=== PATIENT | male | born 1950 | race Caucasian/White ===

== ENCOUNTER 2017-06-25 13:06 | Outpatient (RCR) | payer MEDICARE, MEDICAID ==
[~2017-06-25 13:06] MED LIST: ACHD5005 PO; ATEN50TA PO; CEPH500C PO; CLIN-62 PO; CLIN300C3 PO; HYDR-757 PO; LACT1CAP62 PO; LOVA40TA2 PO; METH4TAB PO; NAPR-243 PO; TRM50T PO
== END 2017-06-25 15:46 | disposition home or self-care (01) ==
PROVIDERS: ATTEND Nurse Practitioner Community Health
DX: M54.42 Lumbago with sciatica, left side (principal)

== ENCOUNTER → 2018-05-30 | Outpatient (CLI) | payer MEDICARE ==
--- NOTE | 2018-05-30 17:05 | Diagnostic Imaging Report ---
CT CHEST SCREENING WO TECHNIQUE: Low-dose unenhanced CT of the chest was performed according to the screening protocol. Coronal MIP and sagittal MPR reformats are created. INDICATION: 67-year-old male with 10-wjfd-ywaa history of smoking. COMPARISON: None available. FINDINGS: Pulmonary findings: No endoluminal nodule within the trachea. Within the left lower lobe, there is an area of potential scarring with multiple cystic airspace disease and areas of cystic bronchiectasis within the anterolateral basal segment of the left lower lobe. No separate pulmonary nodule or mass elsewhere within the lungs. Extrapulmonary findings: No pleural effusion. No axillary lymphadenopathy. No mediastinal, discrete hilar or juxtaphrenic lymphadenopathy. The heart is normal in size without pericardial effusion. Normal caliber thoracic aorta. Scattered coronary artery calcifications. IMPRESSION: 1. Left lower lobe area of probable postinflammatory scarring/fibrosis. Recommend followup low dose CT chest in 3 months to ensure stability and exclude atypical cystic neoplasm. Lung-RADS category: 4A - Suspicious Modifier: None. Dictated by: Dictated on workstation # [id number]
== END ==
LOC: RAD 15:07
PROVIDERS: ATTEND Nurse Practitioner Community Health
DX: Z12.2 Encounter for screening for malignant neoplasm of respiratory organs (principal); F17.210 Nicotine dependence, cigarettes, uncomplicated

== ENCOUNTER → 2020-07-31 | Outpatient (CLI) | payer MEDICARE ==
--- NOTE | 2020-07-31 16:15 | Diagnostic Imaging Report ---
EXAMINATION: CT chest without contrast (lung screening). TECHNIQUE: Multiple contiguous axial images were obtained through the chest without the use of intravenous contrast according to lung cancer screening protocol. All CT scans use one or more of the following dose optimizing techniques: automated exposure control, MA and/or KvP adjustment based on patient size and exam type or iterative reconstruction. HISTORY: 50 pack year history of smoking. COMPARISON: 05/30/2018. FINDINGS: There is no edema or pneumonia. No pleural effusion. No pneumothorax. Left lower lobe chronic appearing collapse and traction bronchiectasis is likely related to prior infection. It is unchanged from prior exam. There is no axillary or supraclavicular lymphadenopathy. There is no mediastinal lymphadenopathy. Heart size is normal. There are mild coronary artery calcifications. No pericardial effusion. Aorta is normal in caliber. Limited views of the upper abdomen are unremarkable. There are no suspicious osseus lesions. IMPRESSION: No suspicious pulmonary nodule. LUNG-RADS CATEGORY: 2 MODIFIER: None. Dictated by: Dictated on workstation # [id number]
== END ==
LOC: RAD 14:15
PROVIDERS: ATTEND Nurse Practitioner Family
DX: Z12.2 Encounter for screening for malignant neoplasm of respiratory organs (principal); F17.210 Nicotine dependence, cigarettes, uncomplicated
CPT/HCPCS: 71271

== ENCOUNTER 2020-09-19 12:28 | Emergency (ER) | payer MEDICARE ==
--- NOTE | 2020-09-19 12:43 | ED General ---
General Stated Complaint: HEP C BLOOD TEST SECOND OPINION Source of Information: Patient Exam Limitations: No Limitations (FRANCY PENN APRN) History of Present Illness Date Seen by Provider: Sep 19, 2020 Time Seen by Provider: 12:41 Initial Comments To ER from [facility] with reports of wanting a second hepatitis test. He states that in July he was told he had hepatitis C. He is here today because he wants a repeat test because he does not believe the results. Timing/Duration: 1-2 Days Severity: Moderate (FRANCY PENN APRN) Allergies and Home Medications Allergies Uncoded Allergies: PENICILLIN (Allergy, Intermediate, RASH, 11/01/09) Home Medications Atenolol 50 Mg Tablet, 1 EACH PO DAILY, (Reported) Lovastatin 40 Mg Tablet, 1 EACH PO DAILY WITH SUPPER, (Reported) Patient Home Medication List Home Medication List Reviewed: Yes (FRANCY PENN APRN) Review of Systems Review of Systems Constitutional: see HPI EENTM: see HPI Respiratory: no symptoms reported Cardiovascular: no symptoms reported Genitourinary: no symptoms reported Musculoskeletal: no symptoms reported Skin: no symptoms reported Psychiatric/Neurological: No Symptoms Reported Hematologic/Lymphatic: No Symptoms Reported Immunological/Allergic: no symptoms reported (FRANCY PENN APRN) Past Wsfifvs-Gzuyvx-Rsxpvz Hx Patient Social History Recent Hopitalizations: No (FRANCY PENN APRN) Immunizations Up To Date Tetanus Booster (TDap): More than 5yrs (FRANCY PENN APRN) Seasonal Allergies Seasonal Allergies: No (FRANCY PENN APRN) Past Medical History Abdominal High Cholesterol, Hypertension Reproductive Disorders: No Sexually Transmitted Disease: No Diverticulosis Arthritis (FRANCY PENN APRN) Family Medical History No Pertinent Family Hx (FRANCY PENN APRN) Physical Exam Vital Signs Capillary Refill : (FRANCY PENN APRN) Height, Weight, BMI Height: 5'10" Weight: 210lbs. oz. 95.500029jo; BMI Method:Stated General Appearance: No Apparent Distress, WD/WN Eyes: Bilateral Eye Normal Inspection, Bilateral Eye PERRL, Bilateral Eye EOMI Respiratory: No Accessory Muscle Use, No Respiratory Distress Gastrointestinal: Normal Bowel Sounds, Non Tender, Soft Extremity: Normal Capillary Refill, Normal Inspection Neurologic/Psychiatric: Alert, Oriented x3 Skin: Normal Color, Warm/Dry (FRANCY PENN APRN) Progress/Results/Core Measures Suspected Sepsis SIRS Temperature: Pulse: Respiratory Rate: Blood Pressure / Mean: (FRANCY PENN APRN) Results/Orders Vital Signs/I&O Capillary Refill : (FRANCY PENN APRN) Departure Communication (Admissions) I called [facility], they will fax his labs out here and I will discuss them with him. (FRANCY PENN APRN) Impression Primary Impression: General medical exam Disposition: 01 HOME, SELF-CARE Condition: Stable Departure-Patient Inst. Referrals: [facility] (PCP/Family) Primary Care Physician Attending physician statement: I was physically present as attending physician in the emergency room at the time of this patient's care, but I was not directly involved in the patient's care. (KATHLEEN RILEY MD) FRANCY PENN APRN Sep 19, 2020 12:43 KATHLEEN RILEY MD Sep 19, 2020 19:33
== END 2020-09-19 13:11 | disposition left against medical advice (07) ==
LOC: EDUNIT# 12:28 → ER 12:30
DX: Z00.00 Encounter for general adult medical examination without abnormal findings (principal); I10 Essential (primary) hypertension; E78.00 Pure hypercholesterolemia, unspecified; Z79.899 Other long term (current) drug therapy

== ENCOUNTER 2022-11-24 16:23 | Inpatient (IN) | payer MEDICARE ==
[~2022-11-24] VITALS: Ht 167 cm; Wt 79.1 kg
[2022-11-24 16:42] LABS: BASOPHILS # (AUTO) 0.1 10^3/uL (0.0-0.1); BASOPHILS % (AUTO) 1 % (0-10); EOSINOPHILS # (AUTO) 0.3 10^3/uL (0.0-0.3); EOSINOPHILS % (AUTO) 4 % (0-10); HEMATOCRIT 45 % (40-54); HEMOGLOBIN 14.9 g/dL (13.3-17.7); LYMPHOCYTES # (AUTO) 2.4 10^3/uL (1.0-4.0); LYMPHOCYTES % (AUTO) 30 % (12-44); MEAN CORPUSCULAR HEMOGLOBIN 29 pg (25-34); MEAN CORPUSCULAR HGB CONC 33 g/dL (32-36); MEAN CORPUSCULAR VOLUME 87 fL (80-99); MEAN PLATELET VOLUME 9.9 fL (9.0-12.2); MONOCYTES # (AUTO) 0.7 10^3/uL (0.0-1.0); MONOCYTES % (AUTO) 9 % (0-12); NEUTROPHILS # (AUTO) 4.4 10^3/uL (1.8-7.8); NEUTROPHILS % (AUTO) 56 % (42-75); PLATELET COUNT 177 10^3/uL (130-400); WHITE BLOOD COUNT 7.8 10^3/uL (4.3-11.0)
[2022-11-24 16:53] LABS: ALBUMIN 4.2 GM/DL (3.2-4.5); CHLORIDE 111 MMOL/L (98-107); POTASSIUM 3.8 MMOL/L (3.6-5.0); SODIUM 143 MMOL/L (135-145)
[2022-11-24 16:54] LABS: CALCIUM 8.8 MG/DL (8.5-10.1)
[2022-11-24 16:55] LABS: GLUCOSE 134 MG/DL (70-105); TOTAL PROTEIN 6.8 GM/DL (6.4-8.2)
[2022-11-24 16:56] LABS: CARBON DIOXIDE 24 MMOL/L (21-32); PROTHROMBIN TIME PATIENT 13.6 SEC (12.2-14.7)
[2022-11-24 16:57] LABS: BILIRUBIN,TOTAL 0.7 MG/DL (0.1-1.0)
[2022-11-24 16:59] LABS: ALKALINE PHOSPHATASE 82 U/L (40-136); CREATININE SERUM 0.76 MG/DL (0.60-1.30); GFR ESTIMATED 95
--- NOTE | 2022-11-24 16:59 | Diagnostic Imaging Report ---
INDICATION: Chest pain. FINDINGS: classification analyst overlies the left chest. The lungs are clear. No failure, effusion, or pneumothorax. IMPRESSION: No acute-appearing abnormality. Dictated by: Dictated on workstation # [id number]
[2022-11-24 17:00] LABS: BUN/CREATININE RATIO 16
[2022-11-24 17:02] LABS: ALANINE AMINOTRANSFERASE 9 U/L (0-55); MAGNESIUM 2.1 MG/DL (1.6-2.4)
[2022-11-24] MEDS ORDERED: NS IV 1000 ML 1,000 ML IV STA (17:04)
--- NOTE | 2022-11-24 17:09 | ED Cardiac General ---
History of Present Illness General Chief Complaint: Cardiac/General Problems Stated Complaint: HEART BLOCKAGE Nursing Triage Note: PT WAS CALLED BY DR. BAKER'S OFFICE AND TOLD TO COME TO THE ED BECAUSE HE WAS IN NEED OF A PACEMAKER. Source: patient Exam Limitations: no limitations History of Present Illness Date Seen by Provider: Nov 24, 2022 Time Seen by Provider: 16:34 Initial Comments From home with report of being told to come to the emergency department for abnormal heart rate. Had monitor placed today and was noted to be in third- degree heart block. Patient has no chest pain, nausea, weakness or other indication of heart problems. Denies breathing problems, fever, chills or upper respiratory symptoms. Noted to have slower pulse last week and was taken off his metoprolol and has had blood pressures in the 160s since. He still has cholesterol medicine. Follows with Dr. Baker. Dr. Baker called and wanted him admitted for pacemaker placement tomorrow. Patient follows with [facility]. Patient is agreeable to this plan. surveillance monitor is still in place on his left upper chest. Patient states he was just sitting on his back deck and during the day when he got the call to come to the emergency department. He did eat a big meal today without any problems. Timing/Duration: 1 hour Severity: mild Location: other (No pain) Activities at Onset: none Prior CP/Workup: no prior chest pain NTG SL WARP TIER: No ASA po WARP TIER: No Associated Systoms: No Chest Pain, No Cough, No Fever/Chills, No Malaise, No Nausea/Vomiting, No Shortness of Air, No Weakness Allergies and Home Medications Allergies Uncoded Allergies: PENICILLIN (Allergy, Intermediate, RASH, 11/01/09) Patient Home Medication List Home Medication List Reviewed: Yes Atenolol (Tenormin 50 Mg) 50 Mg Tablet, 1 EACH PO DAILY, (Reported) Entered as Reported by: RAZA PANCHAL on 11/01/09 143 Lovastatin (Lovastatin 40 Mg) 40 Mg Tablet, 1 EACH PO DAILY WITH SUPPER, (Reported) Entered as Reported by: THO DEJESUS on 12/05/121910 Review of Systems Review of Systems Constitutional: see HPI EENTM: See HPI Respiratory: Denies Cough, Denies Shortness of Air Cardiovascular: Denies Chest Pain; Irregular Heart Rate; Denies Lightheadedness Gastrointestinal: No Symptoms Reported Genitourinary: No Symptoms Reported Musculoskeletal: No back pain, No muscle pain Psychiatric/Neurological: No Symptoms Reported Past Hjbsftg-Kkbgos-Biecyc Hx Patient Social History Tobacco Use?: Yes Tobacco type used: Cigarettes Smoking Status: Current Everyday Smoker Use of E-Cig and/or Vaping dev: No Substance use?: Yes Substance type: Marijuana Substance frequency: Daily Alcohol Use?: No Immunizations Up To Date Tetanus Booster (TDap): More than 5yrs Influenza Vaccine Up-to-Date: No; Not Current Seasonal Allergies Seasonal Allergies: No Past Medical History Abdominal High Cholesterol, Hypertension Reproductive Disorders: No Sexually Transmitted Disease: No Diverticulosis Arthritis Family Medical History Reviewed Nursing Family Hx No Pertinent Family Hx Physical Exam Vital Signs Vital Signs - First Documented 11/24/22 16:46 Temp 36.2 Pulse 54 Resp 16 B/P (MAP) 181/85 O2 Delivery Room Air Capillary Refill : Less Than 3 Seconds Height, Weight, BMI Height: 5'10" Weight: 210lbs. oz. 95.580758kz; 27.00 BMI Method:Stated General Appearance: No Apparent Distress, WD/WN HEENT: PERRL/EOMI, Pharynx Normal Neck: Non Tender, Supple Respiratory: Lungs Clear, Normal Breath Sounds Cardiovascular: No Murmur, Other (Third-degree heart block noted on monitor with ventricular rate in the upper 40s and low 50s) Gastrointestinal: Non Tender, Soft Extremity: Normal Range of Motion, Non Tender Neurologic/Psychiatric: Alert, Oriented x3 Skin: Normal Color, Warm/Dry Progress/Results/Core Measures Results/Orders Lab Results Laboratory Tests Test 11/24/22 16:30 Range/Units White Blood Count 7.8 4.3-11.0 10^3/uL Red Blood Count 5.17 4.30-5.52 10^6/uL Hemoglobin 14.9 13.3-17.7 g/dL Hematocrit 45 40-54 % Mean Corpuscular Volume 87 80-99 fL Mean Corpuscular Hemoglobin 29 25-34 pg Mean Corpuscular Hemoglobin Concent 33 32-36 g/dL Red Cell Distribution Width 12.9 10.0-14.5 % Platelet Count 177 130-400 10^3/uL Mean Platelet Volume 9.9 9.0-12.2 fL Immature Granulocyte % (Auto) 0 % Neutrophils (%) (Auto) 56 42-75 % Lymphocytes (%) (Auto) 30 12-44 % Monocytes (%) (Auto) 9 0-12 % Eosinophils (%) (Auto) 4 0-10 % Basophils (%) (Auto) 1 0-10 % Neutrophils # (Auto) 4.4 1.8-7.8 10^3/uL Lymphocytes # (Auto) 2.4 1.0-4.0 10^3/uL Monocytes # (Auto) 0.7 0.0-1.0 10^3/uL Eosinophils # (Auto) 0.3 0.0-0.3 10^3/uL Basophils # (Auto) 0.1 0.0-0.1 10^3/uL Immature Granulocyte # (Auto) 0.0 0.0-0.1 10^3/uL Prothrombin Time 13.6 12.2-14.7 SEC INR Comment 1.0 0.8-1.4 Activated Partial Thromboplast Time 31 24-35 SEC Sodium Level 143 135-145 MMOL/L Potassium Level 3.8 3.6-5.0 MMOL/L Chloride Level 111 H 98-107 MMOL/L Carbon Dioxide Level 24 21-32 MMOL/L Anion Gap 8 5-14 MMOL/L Blood Urea Nitrogen 12 7-18 MG/DL Creatinine 0.76 0.60-1.30 MG/DL Estimat Glomerular Filtration Rate 95 BUN/Creatinine Ratio 16 Glucose Level 134 H 70-105 MG/DL Calcium Level 8.8 8.5-10.1 MG/DL Corrected Calcium 8.6 8.5-10.1 MG/DL Magnesium Level 2.1 1.6-2.4 MG/DL Total Bilirubin 0.7 0.1-1.0 MG/DL Aspartate Amino Transf (AST/SGOT) 15 5-34 U/L Alanine Aminotransferase (ALT/SGPT) 9 0-55 U/L Alkaline Phosphatase 82 40-136 U/L Myoglobin 26.7 10.0-92.0 NG/ML Troponin I < 0.028 <0.028 NG/ML Total Protein 6.8 6.4-8.2 GM/DL Albumin 4.2 3.2-4.5 GM/DL My Orders Orders - CLAUDETET ONTIVEROS MD Cbc With Automated Diff (11/24/22 16:34) Magnesium (11/24/22 16:34) Chest 1 View, Ap/Pa Only (11/24/22 16:34) Ekg Tracing (11/24/22 16:34) Comprehensive Metabolic Panel (11/24/22 16:34) Myoglobin Serum (11/24/22 16:34) Protime With Inr (11/24/22 16:34) Partial Thromboplastin Time (11/24/22 16:34) O2 (11/24/22 16:34) Monitor-Rhythm Ecg Trace Only (11/24/22 16:34) Lipid Panel (11/25/22 06:00) Ed Iv/Invasive Line Start (11/24/22 16:34) Troponin I [place] (11/24/22 16:34) Ns Iv 1000 Ml (Sodium Chloride 0.9%) (11/24/22 17:04) Code/Resuscitation (11/24/22 17:04) Ed Admission (Communication) (11/24/22 17:04) Vital Signs/I&O 11/24/22 16:46 Temp 36.2 Pulse 54 Resp 16 B/P (MAP) 181/85 O2 Delivery Room Air Blood Pressure Mean: 117 Progress Progress Note : Progress Note Seen and evaluated. IV, labs and EKG ordered. EKG shows third-degree heart block as noted below. We will get CBC, CMP and troponin. I did discuss the case with Dr. Baker as noted in HPI and we will work on admission. I did discuss the case with Dr. Burton at 1647 and she accepts patient for admission, inpatient status to the ICU and she will see the patient in the ER. 1715: Dr. Baker is seeing the patient. To be admitted to the ICU and she will write orders. Patient is n.p.o. after clear liquid breakfast and we will initiate normal saline at 100 mL/h. Hold metoprolol. All of this was discussed with Dr. Burton. Labs reviewed and normal CBC and grossly normal CMP with normal LFTs and negative troponin noted. Chest x-ray reviewed by me and is grossly normal on my interpretation with radiology report agreement. Admit to the ICU. Patient and family agree with plan. Initial ECG Impression Date: Nov 24, 2022 Initial ECG Impression Time: 16:41 Initial ECG Rate: 52 Initial ECG Impression: 3rd Degree AV Block Comment Bradycardic rate with third-degree heart block and ventricular rate of 50s and atrial rate around 100. Normal axis. No evidence of ST elevation MS. Interpreted by me and reviewed by Dr. Baker. Diagnostic Imaging Diagonstic Imaging: Xray Plain Films/CT/US/NM/MRI: chest Comments [facility] [place] NAME: [facility] REC#: [id number] PT STATUS: REG ER : 1950 PHYSICIAN: CLAUDETTE ONTIVEROS MD ADMIT DATE: 11/24/22/ER Signed Date of Exam:11/24/22 CHEST 1 VIEW, AP/PA ONLY INDICATION: Chest pain. FINDINGS: surveillance monitor overlies the left chest. The lungs are clear. No failure, effusion, or pneumothorax. IMPRESSION: No acute-appearing abnormality. Dictated by: Dictated on workstation # [id number] Dict: 11/24/22 1649 Trans: 11/24/227 AS6 [id number] Interpreted by: SAMMI IRIZARRY Electronically signed by: SAMMI IRIZARRY 11/24/221726 Reviewed: Reviewed by Me Departure Communication (Admissions) Time/Spoke to Admitting Phy: 16:47 Time/Spoke to Consulting Phy: 16:34 Impression Primary Impression: Complete heart block Disposition: ADMITTED INPATIENT Condition: Stable Admissions Decision to Admit Reason: Admit from ER (General) Decision to Admit/Date: Nov 24, 2022 Time/Decision to Admit Time: 16:47 Departure-Patient Inst. [facility]errals: [facility] [place] Primary Care Physician CLAUDETTE ONTIVEROS MD Nov 24, 2022 17:09
--- NOTE | 2022-11-24 18:34 | History & Physical ---
History of Present Illness HPI/Chief Complaint Chief complaint: Complete heart block found on equipment monitor phototypesetting HPI: This is a 72-year-old male who just received his external equipment monitor phototypesetting when he was called and told to report to the ER due to a cardiac arrhythmia. Patient was found to be in complete heart block in need of ICU admission and pacemaker placement tomorrow. He remains asymptomatic. Source: patient, family, RN/MD Exam Limitations: no limitations Date Seen 11/24/22 Time Seen by a Provider: 17:30 Attending Physician [facility] PCP Admitting Physician: Attending Physician: Referring Physician Date of Admission Home Medications & Allergies Home Medications Reviewed patient Home Medication Reconciliation performed by pharmacy medication reconciliations paint technician and/or nursing. Patients Allergies have been reviewed. Allergies Allergies Uncoded Allergies PENICILLIN ( Allergy, Intermediate, RASH, 11/01/09) Past Tabotkd-Aqfpge-Mocpfc Hx Past Med/Social Hx: Reviewed Nursing Past Med/Soc Hx, Reviewed and Corrections made Patient Social History Marrital Status: Employed/Student: retired Alcohol Use: Denies Use Smoking Status: Current Everyday Smoker Recent Foreign Travel: No Recent Hopitalizations: No Immunizations Up To Date Tetanus Booster (TDap): More than 5yrs Seasonal Allergies Seasonal Allergies: No Past Medical History Surgeries: Abdominal Cardiac: High Cholesterol, Hypertension Reproductive: No Sexually Transmitted Disease: No Gastrointestinal: Diverticulosis Musculoskeletal: Arthritis Family History Reviewed Nursing Family Hx No Pertinent Family Hx Review of Systems Constitutional: see HPI, malaise, weakness Physical Exam Physical Exam Vital Signs Vital Signs - First Documented 11/24/22 11/24/22 16:46 19:49 Temp 36.2 Pulse 54 Resp 16 B/P (MAP) 181/85 Pulse Ox 94 O2 Delivery Room Air FiO2 21 Capillary Refill : Less Than 3 Seconds Height, Weight, BMI Height: 5'10" Weight: 210lbs. oz. 95.657120dt; 27.00 BMI Method:Stated General Appearance: No Apparent Distress, WD/WN HEENT: PERRL/EOMI, Pharynx Normal Neck: Non Tender, Supple Respiratory: Lungs Clear, Normal Breath Sounds Cardiovascular: No Murmur, Irregularly Irregular, Other (Third-degree heart block noted on monitor with ventricular rate in the upper 40s and low 50s) Gastrointestinal: Non Tender, Soft Extremity: Normal Range of Motion, Non Tender Neurologic/Psychiatric: Alert, Oriented x3 Skin: Normal Color, Warm/Dry Results Results/Procedures Labs Laboratory Tests 11/24/22 16:30 Patient resulted labs reviewed. Assessment/Plan Admission Diagnosis Assessment: Complete heart block Bradycardia HTN HLP Smoker Plan: Pacemaker tomorrow Monitor closely ICU Dr Baker consult Admission Status: Inpatient Order (span 2 midnights) Reason for Inpatient Admission: complete heart block in need of pacemaker and ICU admit Clinical Quality Measures AMI/AHF: ASA po Prior to arrival: IBETH Roth DO Nov 24, 2022 18:34
[2022-11-24] MEDS ORDERED: CALCIUM CARBONATE 500 MG CHEW TABLET PO PRN (19:30)
[2022-11-24] MEDS ORDERED: diphenhydrAMINE 25 MG TABLET PO PRN (19:30)
[2022-11-24] MEDS ORDERED: MELATONIN 3 MG TABLET PO PRN (19:30)
[2022-11-24] MEDS ORDERED: ANTACID SUSPENSION 30 ML UDC PO PRN (19:30)
[2022-11-24] MEDS ORDERED: diphenhydrAMINE INJ 50 MG/ML VIAL IVP PRN (19:30)
[2022-11-24] MEDS ORDERED: NS IV 500 ML 500 ML IV PRN (19:30)
[2022-11-24] MEDS ORDERED: ACETAMINOPHEN 325 MG TABLET PO PRN (19:30)
[2022-11-24] MEDS ORDERED: LACTULOSE SYRUP 10GM/15ML 30ML UDC PO PRN (19:30)
[2022-11-24] MEDS ORDERED: morphine INJ 4 MG/ML 1 ML (VIAL/SYRINGE) IV PRN (19:30)
[2022-11-24] MEDS ORDERED: MILK OF MAGNESIA 400 MG/5 ML 30 ML UDC PO PRN (19:30)
[2022-11-24] MEDS ORDERED: ONDANSETRON INJECTION 4 MG/2 ML (SDV) IV PRN (19:30)
[2022-11-24] MEDS ORDERED: ONDANSETRON 4 MG ORAL DISSOLVE TABLET PO PRN (19:30)
[2022-11-24] MEDS ORDERED: oxyCODONE IMMEDIATE RELEASE 5 MG TABLET PO PRN (19:30)
[2022-11-24] MEDS ORDERED: BISACODYL 10 MG SUPPOSITORY PR PRN (19:30)
[2022-11-24 19:49] VITALS: BP 181/85
[2022-11-24] MEDS: NS IV 1000 ML 1,000 ML IV SCH (20:09)
[2022-11-24] MEDS: ENOXAPARIN 40 MG/0.4 ML SYRINGE SC SCH (20:09)
[2022-11-24] MEDS: DOCUSATE SODIUM 100 MG CAPSULE PO SCH (20:15)
[2022-11-24] MEDS: SENNOSIDES 8.6 MG (SENOKOT) TAB PO SCH (20:16)
--- NOTE | 2022-11-24 20:34 | Tele-ICU Progress Note ---
Progress Note (Tele-ICU Physician , consultation as per request of PCP Service provided via interactive audio and video telecommunications E-CARE system to a patient admitted to ICU bed in [facility]. Available chart/ vitals / labs / Images reviewed H&P is from ER notes Patient's information available about PMH, Shx, Fhx allergy reviewed inEMR. ROS as per chart and RN report Now in ICU, hemodynamically stable Video assessment done using teleICU camera, rest of exam as per RN Discussed with RN. Hospital course: Patient received his security flex officer and was immediately called and told to come into the ED for evaluation. Found to be in complete heart block. Has been asymptomatic. On arrival to ICU remains in complete heart block with escape rhythm in the 30s, BP 148/68. A/P third-degree heart block, normotensive and asymptomatic - atenolol on hold - cardiology consulted - follow recom Lines : , (Central Line Necessity Reviewed) Kowalski: OG: Nutrition: Analgesia: Anxiety/ delirium VTE Prophylaxis: Stress Ulcer Prophylaxis: Glycemic Control: Plans in collaboration with bedside consultants and IM MDs. Discussed with RN to reach out if any questions or concerns A total of 10 min critical care time was devoted to this patient today, required to treat and/or prevent further deterioration of critical care condition (as above). I am remotely monitoring this patient from another state. I am unable to do the bedside exam, and history/physical and pertinent information is taken from other notes in the computer and bedside staff. Focused Exam Height, Weight, BMI Height: 5'10" Weight: 210lbs. oz. 95.690340vt; 28.36 BMI Method:Stated SCAR MARIE MD Nov 24, 2022 20:34
[2022-11-24] MEDS: inSUlin ASPART 1 UNIT/0.01 ML (PER UNIT) SC SCH (22:12)
[2022-11-25 05:06] LABS: BASOPHILS % (AUTO) 1 % (0-10); EOSINOPHILS # (AUTO) 0.4 10^3/uL (0.0-0.3); EOSINOPHILS % (AUTO) 5 % (0-10); HEMATOCRIT 40 % (40-54); HEMOGLOBIN 13.4 g/dL (13.3-17.7); LYMPHOCYTES # (AUTO) 2.4 10^3/uL (1.0-4.0); LYMPHOCYTES % (AUTO) 33 % (12-44); MEAN CORPUSCULAR HEMOGLOBIN 29 pg (25-34); MEAN CORPUSCULAR HGB CONC 33 g/dL (32-36); MEAN CORPUSCULAR VOLUME 86 fL (80-99); MEAN PLATELET VOLUME 10.4 fL (9.0-12.2); MONOCYTES # (AUTO) 0.6 10^3/uL (0.0-1.0); MONOCYTES % (AUTO) 9 % (0-12); NEUTROPHILS # (AUTO) 3.7 10^3/uL (1.8-7.8); NEUTROPHILS % (AUTO) 52 % (42-75); PLATELET COUNT 163 10^3/uL (130-400); WHITE BLOOD COUNT 7.2 10^3/uL (4.3-11.0)
[2022-11-25 05:24] LABS: ALBUMIN 3.6 GM/DL (3.2-4.5); BILIRUBIN,TOTAL 0.5 MG/DL (0.1-1.0); CALCIUM 8.2 MG/DL (8.5-10.1); CREATININE SERUM 0.64 MG/DL (0.60-1.30); MAGNESIUM 1.9 MG/DL (1.6-2.4); PHOSPHORUS 2.9 MG/DL (2.3-4.7); POTASSIUM 3.9 MMOL/L (3.6-5.0); TOTAL PROTEIN 6.1 GM/DL (6.4-8.2)
[2022-11-25] MEDS ORDERED: POTASSIUM CL 10MEQ/50ML IVPB 50 ML IV SCH (05:30)
[2022-11-25] MEDS ORDERED: POTASSIUM CHLORIDE 20 MEQ TABLET PO ONE (05:45)
[2022-11-25] MEDS: NS IV 1000 ML 1,000 ML IV SCH ×2 (05:55→06:01)
[2022-11-25] MEDS: MAGNESIUM 1 GM/100 ML IVPB 100 ML IV SCH ×3 (05:55→07:38)
[2022-11-25] MEDS: POTASSIUM CL 10MEQ/50ML IVPB 50 ML IV SCH (06:19)
[2022-11-25] MEDS: inSUlin ASPART 1 UNIT/0.01 ML (PER UNIT) SC SCH ×3 (06:22→16:20)
[2022-11-25] MEDS: POTASSIUM CHLORIDE 20 MEQ TABLET PO SCH (06:22)
--- NOTE | 2022-11-25 09:42 | Diagnostic Imaging Report ---
INDICATION: Chest pain TECHNIQUE: Single view chest 2:31 AM CORRELATION STUDY: 11/24/2022 FINDINGS: The heart size, mediastinal configuration and pulmonary vascularity are within normal limits. Tortuous course thoracic aorta. Mild calcification of the aortic arch. Minimal discoid atelectasis at the left lung base. Lungs otherwise generally clear. IMPRESSION: 1. Negative appearing single view chest. Dictated by: Dictated on workstation # [id number]
[2022-11-25] MEDS ORDERED: CHOL20003 PO (09:57)
[2022-11-25] MEDS ORDERED: MAGN400T39 PO (09:57)
[2022-11-25] MEDS ORDERED: ZINC50TA51 PO (09:57)
[2022-11-25] MEDS ORDERED: ASCO-262 PO (09:57)
[2022-11-25] MEDS ORDERED: CYAN-41 PO (09:57)
[2022-11-25] MEDS ORDERED: LOVA40TA2 PO (09:57)
--- NOTE | 2022-11-25 10:42 | Tele-ICU Progress Note ---
Progress Note (Tele-ICU Physician , Progress Note ) Service provided via interactive audio and video telecommunications E-CARE system to a patient admitted to ICU bed in [facility]. Patient is seen today due to persistent need of ICU care Available chart/ vitals / labs / Images reviewed Video assessment done using teleICU camera, rest of exam as per RN Discussed with RN Events overnight : Afebrile hemodynamically stable Respiratory - ra I/O = Drips: Pressors- no Hospital course: 11/24 Patient received his phototypesetting equipment monitor and was immediately called and told to come into the ED for evaluation. Found to be in complete heart block. Has been asymptomatic. On arrival to ICU remains in complete heart block with escape rhythm in the 30s, BP 148/68. A/P third-degree heart block, normotensive and asymptomatic - atenolol on hold - cardiology consulted - for pacemaker placement today Lines : , (Central Line Necessity Reviewed) Kowalski: OG: Nutrition: Analgesia: Anxiety/ delirium VTE Prophylaxis: Stress Ulcer Prophylaxis: Plans in collaboration with bedside consultants and IM MDs. Discussed with RN to reach out if any questions or concerns Case and care daily discussed on multidisciplinary rounds ( RN, PharmD, Disability Specialist , Respiratory Therapy, cement storage worker ) A total of 5 minutes of critical care time was devoted to this patient today, required to treat and/or prevent further deterioration of critical care condition ( as above ) . I am remotely monitoring this patient from another state. I am unable to do the bedside exam, and history/physical and pertinent information is taken from other notes in the computer and bedside staff. Focused Exam Height, Weight, BMI Height: 5'10" Weight: 210lbs. oz. 95.614868sl; 28.36 BMI Method:Stated TYSON AGUILAR MD Nov 25, 2022 10:42
--- NOTE | 2022-11-25 10:43 | Consultation-Cardiology ---
HPI-Cardiology Cardiology Consultation Date of Consultation 11/25/22 Date of Admission Time Seen by Provider: 10:41 Indication: Complete heart block HPI 72-year-old gentleman with history of hypertension, noted to have severe bradycardia during his routine visit to Dr. Bentley's office at [facility], twelve-lead EKG showed high-grade AV block. He was referred to me and after we discussed the management over the phone I saw him in my office. Patient was asymptomatic with a heart rate in the 40s. Twelve-lead EKG showed high-grade AV block. I decided to proceed with Zio patch and arrange for stress test and echo Within an hour from having the Zio patch I received a call that the patient progressed to complete heart block. I contacted the patient and sent him to the emergency room. On my evaluation this morning he is still asymptomatic, feeling well, heart rate is in the 40s, dipping to the low 30s earlier. No chest pain or shortness of breath Home Medications & Allergies Allergies: Uncoded Allergies: PENICILLIN (Allergy, Intermediate, RASH, 11/01/09) Home Medication List Reviewed: Yes [id number] Hx Patient Social History Marital Status: Employed/Student: retired Smoking Status: Current Everyday Smoker Recent Hopitalizations: No Alcohol Use?: No Substance type: Marijuana Immunizations Up To Date Tetanus Booster (TDap): More than 5yrs Past Medical History Discussed below Family Medical History Significant Family History: No Pertinent Family Hx Review of Systems-General Review of Systems Constitutional: see HPI, malaise, weakness EENTM: see HPI, no symptoms reported Respiratory: no symptoms reported, see HPI Cardiovascular: see HPI Gastrointestinal: no symptoms reported, see HPI Genitourinary: no symptoms reported, see HPI Musculoskeletal: No back pain, No muscle pain Skin: no symptoms reported, see HPI Psychiatric/Neurological: No Symptoms Reported Reviewed Test Results Reviewed Test Results Lab Laboratory Tests Test 11/24/22 16:30 11/24/22 21:56 11/25/22 03:41 Range/Units White Blood Count 7.8 7.2 4.3-11.0 10^3/uL Red Blood Count 5.17 4.67 4.30-5.52 10^6/uL Hemoglobin 14.9 13.4 13.3-17.7 g/dL Hematocrit 45 40 40-54 % Mean Corpuscular Volume 87 86 80-99 fL Mean Corpuscular Hemoglobin 29 29 25-34 pg Mean Corpuscular Hemoglobin Concent 33 33 32-36 g/dL Red Cell Distribution Width 12.9 12.9 10.0-14.5 % Platelet Count 177 163 130-400 10^3/uL Mean Platelet Volume 9.9 10.4 9.0-12.2 fL Immature Granulocyte % (Auto) 0 0 % Neutrophils (%) (Auto) 56 52 42-75 % Lymphocytes (%) (Auto) 30 33 12-44 % Monocytes (%) (Auto) 9 9 0-12 % Eosinophils (%) (Auto) 4 5 0-10 % Basophils (%) (Auto) 1 1 0-10 % Neutrophils # (Auto) 4.4 3.7 1.8-7.8 10^3/uL Lymphocytes # (Auto) 2.4 2.4 1.0-4.0 10^3/uL Monocytes # (Auto) 0.7 0.6 0.0-1.0 10^3/uL Eosinophils # (Auto) 0.3 0.4 H 0.0-0.3 10^3/uL Basophils # (Auto) 0.1 0.0 0.0-0.1 10^3/uL Immature Granulocyte # (Auto) 0.0 0.0 0.0-0.1 10^3/uL Prothrombin Time 13.6 12.2-14.7 SEC INR Comment 1.0 0.8-1.4 Activated Partial Thromboplast Time 31 24-35 SEC Sodium Level 143 142 135-145 MMOL/L Potassium Level 3.8 3.9 3.6-5.0 MMOL/L Chloride Level 111 H 113 H 98-107 MMOL/L Carbon Dioxide Level 24 21 21-32 MMOL/L Anion Gap 8 8 5-14 MMOL/L Blood Urea Nitrogen 12 12 7-18 MG/DL Creatinine 0.76 0.64 0.60-1.30 MG/DL Estimat Glomerular Filtration Rate 95 101 BUN/Creatinine Ratio 16 19 Glucose Level 134 H 90 70-105 MG/DL Calcium Level 8.8 8.2 L 8.5-10.1 MG/DL Corrected Calcium 8.6 8.5 8.5-10.1 MG/DL Magnesium Level 2.1 1.9 1.6-2.4 MG/DL Total Bilirubin 0.7 0.5 0.1-1.0 MG/DL Aspartate Amino Transf (AST/SGOT) 15 14 5-34 U/L Alanine Aminotransferase (ALT/SGPT) 9 7 0-55 U/L Alkaline Phosphatase 82 75 40-136 U/L Myoglobin 26.7 10.0-92.0 NG/ML Troponin I < 0.028 <0.028 NG/ML Total Protein 6.8 6.1 L 6.4-8.2 GM/DL Albumin 4.2 3.6 3.2-4.5 GM/DL Glucometer 93 70-110 MG/DL Phosphorus Level 2.9 2.3-4.7 MG/DL Triglycerides Level 69 <150 MG/DL Cholesterol Level 103 < 200 MG/DL LDL Cholesterol Direct 63 1-129 MG/DL VLDL Cholesterol 14 5-40 MG/DL HDL Cholesterol 34 L 40-60 MG/DL Physical Exam Physical Exam Vital Signs Vital Signs - First Documented 11/24/22 11/24/22 11/24/22 16:46 19:15 19:49 Temp 36.2 Pulse 54 Resp 16 B/P (MAP) 181/85 Pulse Ox 96 O2 Delivery Room Air FiO2 21 Capillary Refill : Less Than 3 Seconds Height, Weight, BMI Height: 5'10" Weight: 210lbs. oz. 95.304915ms; 28.36 BMI Method:Stated General Appearance: No Apparent Distress, WD/WN HEENT: PERRL/EOMI, Pharynx Normal Neck: Non Tender, Supple Respiratory: Lungs Clear, Normal Breath Sounds Cardiovascular: No Murmur, Irregularly Irregular, Other (Third-degree heart block noted on monitor with ventricular rate in the upper 40s and low 50s) Gastrointestinal: Non Tender, Soft Extremity: Normal Range of Motion, Non Tender Neurologic/Psychiatric: Alert, Oriented x3 Skin: Normal Color, Warm/Dry A/P-Cardiology Admission Diagnosis Complete heart block Bradycardia Hypertension Hyperlipidemia Assessment/Plan Complete heart block Patient was noted in the office to have bradycardia, had a Zio patch placed and within 1 hour he progressed into a complete heart block. Patient was sent to the emergency room Overnight still in complete heart block. Electrolytes are normal. Planning to proceed with dual-chamber pacemaker implantation today Hypertension, controlled, currently off beta-blockers. We will avoid beta-blockers or calcium channel blockers at this point Hyperlipidemia, maintained on lovastatin, I will evaluate lipid profile and metabolic profile Cataract, patient is having work-up for cataract surgery Tobaccoism, smoking 1 pack a day, educated on smoking cessation Mild bilateral carotid stenosis, continue to monitor Strong family history of heart disease with both parents has history of heart disease Clinical Quality Measures AMI/AHF: ASA po Prior to arrival: ANTONY Kaminski MD Nov 25, 2022 10:43
--- NOTE | 2022-11-25 12:24 | Progress Note ---
EDWIN HAGEN 11/25/22 1224: Subjective Date Seen by a Provider: Nov 25, 2022 Time Seen by a Provider: 09:00 Subjective/Events-last exam This is a 72-year-old male patient who presented to the ED with abnormal HR. He recently had an external pacemaker placed and was noted to have 3rd degree heart block. On patient visit, he denied having any pain, weakness, dizziness, chest pain, nausea, and vomiting. He had a small breakfast and reported no issues. Has a history of HTN and high cholesterol, current smoker. Has retinal detachment for which he is getting surgery at sometime in the near future. Had cataract surgery for both eyes around 3 yrs ago. Will be having dual chamber pacemaker placed at 2 p.m. Review of Systems General: No Chills, No Fatigue, No Malaise Pulmonary: No Dyspnea, No Cough Cardiovascular: No: Chest Pain Gastrointestinal: No: Nausea, Vomiting Objective Exam Last Set of Vital Signs Vital Signs Date Time Temp Pulse Resp B/P (MAP) Pulse Ox O2 Delivery O2 Flow Rate FiO2 11/25/22 10:00 38 17 94 Room Air 11/24/22 19:49 36.4 21 Capillary Refill : Less Than 3 Seconds I&O Intake and Output 11/25/22 00:00 Intake Total 300 ml Balance 300 ml Intake Oral 300 ml IV Total 0 ml # Voids 1 Daily Weight Change No General: Alert, Oriented X3, Cooperative, No Acute Distress HEENT: Atraumatic, PERRLA, EOMI, Mucous Memb Moist/[place] Extremities: No Clubbing, No Cyanosis Neuro: Normal Speech Psych/Mental Status: Mental Status NL, Mood NL Results Lab Laboratory Tests 11/24/22 16:30: White Blood Count 7.8, Red Blood Count 5.17, Hemoglobin 14.9, Hematocrit 45, Mean Corpuscular Volume 87, Mean Corpuscular Hemoglobin 29, Mean Corpuscular Hemoglobin Concent 33, Red Cell Distribution Width 12.9, Platelet Count 177, Mean Platelet Volume 9.9, Immature Granulocyte % (Auto) 0, Neutrophils (%) (Auto) 56, Lymphocytes (%) (Auto) 30, Monocytes (%) (Auto) 9, Eosinophils (%) (Auto) 4, Basophils (%) (Auto) 1, Neutrophils # (Auto) 4.4, Lymphocytes # (Auto) 2.4, Monocytes # (Auto) 0.7, Eosinophils # (Auto) 0.3, Basophils # (Auto) 0.1, Immature Granulocyte # (Auto) 0.0, Prothrombin Time 13.6, INR Comment 1.0, Activated Partial Thromboplast Time 31, Sodium Level 143, Potassium Level 3.8, Chloride Level 111H, Carbon Dioxide Level 24, Anion Gap 8, Blood Urea Nitrogen 12, Creatinine 0.76, Estimat Glomerular Filtration Rate 95, BUN/Creatinine Ratio 16, Glucose Level 134H, Calcium Level 8.8, Corrected Calcium 8.6, Magnesium Level 2.1, Total Bilirubin 0.7, Aspartate Amino Transf (AST/SGOT) 15, Alanine Aminotransferase (ALT/SGPT) 9, Alkaline Phosphatase 82, Myoglobin 26.7, Troponin I < 0.028, Total Protein 6.8, Albumin 4.2 11/24/22 21:56: Glucometer 93 11/25/22 03:41: White Blood Count 7.2, Red Blood Count 4.67, Hemoglobin 13.4, Hematocrit 40, Mean Corpuscular Volume 86, Mean Corpuscular Hemoglobin 29, Mean Corpuscular Hemoglobin Concent 33, Red Cell Distribution Width 12.9, Platelet Count 163, Mean Platelet Volume 10.4, Immature Granulocyte % (Auto) 0, Neutrophils (%) (Auto) 52, Lymphocytes (%) (Auto) 33, Monocytes (%) (Auto) 9, Eosinophils (%) (Auto) 5, Basophils (%) (Auto) 1, Neutrophils # (Auto) 3.7, Lymphocytes # (Auto) 2.4, Monocytes # (Auto) 0.6, Eosinophils # (Auto) 0.4H, Basophils # (Auto) 0.0, Immature Granulocyte # (Auto) 0.0, Sodium Level 142, Potassium Level 3.9, Chloride Level 113H, Carbon Dioxide Level 21, Anion Gap 8, Blood Urea Nitrogen 12, Creatinine 0.64, Estimat Glomerular Filtration Rate 101, BUN/Creatinine Ratio 19, Glucose Level 90, Calcium Level 8.2L, Corrected Calcium 8.5, Magnesium Level 1.9, Total Bilirubin 0.5, Aspartate Amino Transf (AST/SGOT) 14, Alanine Aminotransferase (ALT/SGPT) 7, Alkaline Phosphatase 75, Total Protein 6.1L, Albumin 3.6, Phosphorus Level 2.9, Triglycerides Level 69, Cholesterol Level 103, LDL Cholesterol Direct 63, VLDL Cholesterol 14, HDL Cholesterol 34L Assessment/Plan Assessment/Plan Assess & Plan/Chief Complaint Assessment: Complete heart block Bradycardia HTN HLP Current smoker Retinal detachment left eye, will get surgery at History of cataract surgery both eyes Plan: Receiving pacemaker today Continue to monitor ICU Clinical Quality Measures AMI/AHF: ASA po Prior to arrival: No BARBARA ALEJANDRA DO 11/25/222007: Subjective Subjective/Events-last exam Patient doing well Pacemaker will be placed today Complete heart block maintained Holding atenolol Review of Systems General: Fatigue, Malaise Objective Exam General: Alert, Oriented X3, Cooperative, No Acute Distress Lungs: Clear to Auscultation, Normal Air Movement Heart: Regular Rate, Normal S1, Normal S2, No Murmurs Psych/Mental Status: Mental Status NL, Mood NL Assessment/Plan Assessment/Plan Assess & Plan/Chief Complaint Pacemaker today Supervisory-Addendum Brief Verification & Attestation Participated in pt care: history, MDM, physical Personally performed: exam, history, MDM, supervision of care Care discussed with: Medical Student Procedures: n/a Results interpretation: Verified all documentation Verification and Attestation of Medical Student E/M Service A medical student performed and documented this service in my presence. I reviewed and verified all information documented by the medical student and made modifications to such information, when appropriate. I personally performed the physical exam and medical decision making. Barbara Alejandra, Nov 25, 2022,20:07 EDWIN HAGEN Nov 25, 2022 12:24 BARBARA ALEJANDRA DO Nov 25, 2022 20:08
[2022-11-25] MEDS ORDERED: HEParin (CATH LAB) 1,000 ML IV ONE (12:48)
[2022-11-25] MEDS ORDERED: NS IV 1000 ML 2,000 ML ONE (12:48)
[2022-11-25] MEDS ORDERED: LIDOCAINE 1% INJ 20 ML VIAL ONE (12:48)
[2022-11-25] MEDS ORDERED: fentaNYL INJECTION 100 MCG/2 ML VIAL ONE ×2 (14:19→15:18)
[2022-11-25] MEDS ORDERED: MIDAZOLAM INJ 5 MG/5 ML VIAL ONE ×2 (14:20→15:17)
[2022-11-25] MEDS ORDERED: ceFAZolin INJECTION 1,000 MG ONE (14:20)
[2022-11-25] MEDS ORDERED: NS (IVPB) 50 ML 50 ML ONE (14:20)
[2022-11-25] MEDS: SENNOSIDES 8.6 MG (SENOKOT) TAB PO SCH ×2 (15:15→20:33)
[2022-11-25] MEDS: DOCUSATE SODIUM 100 MG CAPSULE PO SCH ×2 (15:15→20:33)
[2022-11-25] MEDS ORDERED: NS IV 1000 ML 1,000 ML IV SCH (16:30)
[2022-11-25] MEDS ORDERED: PATIENT MAY USE OWN MEDS, ALL PO SCH (16:30)
--- NOTE | 2022-11-25 16:30 | Permanent Pacemaker Implant ---
Dual Chamber Pacemaker Implant PROCEDURE PHYSICIAN: Shashi Baker DUAL CHAMBER PACEMAKER IMPLANTATION: DATE OF PROCEDURE: 11/25/22 REFERRING PHYSICIAN: Dr. Sylvia Bentley ATTENDING PHYSICIAN: Dr. Sue Burton INDICATION: Complete heart block PREOPERATIVE DIAGNOSIS: Complete heart block POSTOPERATIVE DIAGNOSIS: Bradycardia with complete heart block HISTORY: Dual-chamber permanent pacemaker was recommended. PROCEDURE PERFORMED: 1. Dual-chamber permanent pacemaker implantation. 2. Fluoroscopy. 3. Central venous access. ANESTHESIA: Local anesthesia, conscious sedation. COMPLICATIONS: None. ESTIMATED BLOOD LOSS:20 mL. SPECIMENS: None. ORAL ANTICOAGULATION: None. FLUOROSCOPY TIME: FLUOROSCOPY DOSE: CONTRAST DOSE: PROCEDURE DETAILS: The patient is a 72 male admitted with complete heart block and bradycardia, schedule for dual-chamber pacemaker implant. After all of the patients questions were answered, the patient was brought to the EP Lab. The patient's left chest was prepped and draped in sterile fashion. A 2 inch horizontal incision was made 1 cm below the clavicle and dissection carried down to the pectoralis fascia. Using the modified Seldinger technique and under fluoroscopy guidance, the anterior aspect of the left axillary vein was accessed 2 times. The J wires were secured to the drapes with a mosquito clamp. A 7-Belgian sheath was introduced over one of the J-wires. The RV lead was then inserted. The RV lead was directed across the tricuspid valve to the apical septal portion of the right ventricle. The position was checked in GERMAN and CIFUENTES views. The screw was deployed and the lead connected to the machine programmer. Close sensing and pacing thresholds were obtained. Diaphragmatic pacing was ruled out. The lead was secured with 2-0 silk ties to the underlying muscle and fascia. Next, a 7-Belgian sheath was introduced through the remaining J-wire. An atrial lead was then introduced and guided to the level of the right appendage. The screw was deployed and the lead was connected to the interrogator. Good sensing and pacing thresholds were obtained. Diaphragmatic pacing was ruled out. The leads were secured with 2-0 silk ties to the underlying muscle and fascia. The leads were connected to the device in a hermetic fashion. The device and leads were placed in the pocket. Aggressive irrigation with saline solution was done. The device was secured to the underlying muscle and fascia with a 2-0 silk tie. interrogation of the device revealed good integrity of all the leads and good connections. The wound was then closed using 2 layers. The first layer was interrupted 2-0 absorbable Vicryl suture. The last layer was a single subcuticular layer with 4- 0 Vicryl suture. Half inch Steri-Strips and a small dressing were then applied to the wound. The patient tolerated the procedure well and was returned to the recovery room in stable condition with stable vital signs. DEVICE INFORMATION: GUSTAVO XT DR MRI [id number] RA LEAD: [id number] RV LEAD: [id number] PER-OPERATIVE DEVICE INTERROGATION: Good sensing and capture activity IMMEDIATE POSTOPERATIVE DEVICE INTERROGATION: Right atrium bipolar pulse width 0.4 ms at 1.5 V, impedance 399, P wave 4.3 mV, later interrogation had pacing threshold for the atrium 0.5 V at 0.4 ms RV bipolar 0.4 ms at 0.75 V, impedance 646, R wave 5.5. Later interrogation has pacing threshold for the ventricular 0.5 at 0.4 ms PLAN: The patient transferred to the ICU. We will continue with two more doses of IV antibiotics. We will check a chest x-ray and interrogate the device in the morning. The patient will continue on oral antibiotics for 5 days. CONCLUSION: Successful dual-chamber pacemaker implantation with no complication SHASHI BAKER MD Nov 25, 2022 16:30
--- NOTE | 2022-11-25 16:47 | Diagnostic Imaging Report ---
EXAMINATION: Chest, one view. HISTORY: Pacemaker placement. COMPARISON: 11/25/2022. FINDINGS: There is mild edema. No pleural effusion or pneumothorax. Heart size is normal. A pacemaker is present. IMPRESSION: 1. Mild edema. No pneumothorax. Dictated by: Dictated on workstation # [id number]
[2022-11-25] MEDS: ENOXAPARIN 40 MG/0.4 ML SYRINGE SC SCH (20:33)
[2022-11-26 04:00] LABS: BASOPHILS # (AUTO) 0.1 10^3/uL (0.0-0.1); BASOPHILS % (AUTO) 1 % (0-10); EOSINOPHILS # (AUTO) 0.4 10^3/uL (0.0-0.3); EOSINOPHILS % (AUTO) 4 % (0-10); HEMATOCRIT 43 % (40-54); HEMOGLOBIN 14.3 g/dL (13.3-17.7); LYMPHOCYTES # (AUTO) 2.1 10^3/uL (1.0-4.0); LYMPHOCYTES % (AUTO) 25 % (12-44); MEAN CORPUSCULAR HEMOGLOBIN 28 pg (25-34); MEAN CORPUSCULAR HGB CONC 34 g/dL (32-36); MEAN CORPUSCULAR VOLUME 85 fL (80-99); MONOCYTES # (AUTO) 0.7 10^3/uL (0.0-1.0); MONOCYTES % (AUTO) 9 % (0-12); NEUTROPHILS # (AUTO) 5.1 10^3/uL (1.8-7.8); NEUTROPHILS % (AUTO) 61 % (42-75); PLATELET COUNT 194 10^3/uL (130-400); WHITE BLOOD COUNT 8.4 10^3/uL (4.3-11.0)
[2022-11-26 04:44] LABS: ALBUMIN 3.9 GM/DL (3.2-4.5); BILIRUBIN,TOTAL 0.8 MG/DL (0.1-1.0); CALCIUM 8.4 MG/DL (8.5-10.1); CREATININE SERUM 0.65 MG/DL (0.60-1.30); MAGNESIUM 1.9 MG/DL (1.6-2.4); PHOSPHORUS 2.6 MG/DL (2.3-4.7); POTASSIUM 3.8 MMOL/L (3.6-5.0); TOTAL PROTEIN 6.5 GM/DL (6.4-8.2)
[2022-11-26] MEDS: NS IV 1000 ML 1,000 ML IV SCH (04:53)
[2022-11-26] MEDS: POTASSIUM CL 10MEQ/50ML IVPB 50 ML IV SCH (05:11)
[2022-11-26] MEDS: MAGNESIUM 1 GM/100 ML IVPB 100 ML IV SCH ×3 (05:13→07:30)
[2022-11-26] MEDS: POTASSIUM CHLORIDE 20 MEQ TABLET PO SCH (05:13)
[2022-11-26] MEDS ORDERED: POTASSIUM CHLORIDE 20 MEQ TABLET PO ONE (05:15)
[2022-11-26] MEDS ORDERED: ZINC SULFATE 220 MG CAPSULE PO SCH (08:00)
[2022-11-26] MEDS ORDERED: MAGNESIUM OXIDE 400 MG TABLET PO SCH (08:00)
--- NOTE | 2022-11-26 08:19 | Cardiology Progress Note ---
Subjective Date Seen by Provider: Nov 26, 2022 Time Seen by Provider: 08:18 Subjective/Events-last exam Patient was seen at bedside laying down comfortably, no new complaint Objective-Cardiology Exam Last Set of Vital Signs Vital Signs 11/24/22 11/26/22 19:49 06:00 Temp 36.4 Pulse 60 Resp 15 B/P (MAP) 148/88 (108) Pulse Ox 96 O2 Delivery Room Air FiO2 21 I&O Intake and Output 11/26/22 00:00 Intake Total 1350 ml Balance 1350 ml Intake Oral 350 ml IV Total 1000 ml # Voids 7 # Bowel Movements 3 General: Alert, Oriented X3, Cooperative, No Acute Distress HEENT: Atraumatic, PERRLA, EOMI, Mucous Memb Moist/Charlo Lungs: Clear to Auscultation, Normal Air Movement Heart: Regular Rate, Normal S1, Normal S2, No Murmurs Extremities: No Clubbing, No Cyanosis Skin: No Rashes Neuro: Normal Speech Psych/Mental Status: Mental Status NL, Mood NL Results Lab Laboratory Tests 11/26/22 03:49 A/P-Cardiology Admission Diagnosis Complete heart block Bradycardia Hypertension Hyperlipidemia Assessment/Plan Complete heart block Patient was noted in the office to have bradycardia, had a Zio patch placed and within 1 hour he progressed into a complete heart block. Status post dual-chamber pacemaker Currently in paced rhythm and doing well. Hypertension, controlled, currently off beta-blockers. I will restart Toprol XL 25 mg daily Hyperlipidemia, maintained on lovastatin, I will evaluate lipid profile and metabolic profile Cataract, patient is having work-up for cataract surgery Tobaccoism, smoking 1 pack a day, educated on smoking cessation Mild bilateral carotid stenosis, continue to monitor Strong family history of heart disease with both parents has history of heart disease ANTONY ORTEGA MD Nov 26, 2022 08:19
[2022-11-26] MEDS ORDERED: METO-351 PO (08:20)
[2022-11-26] MEDS ORDERED: CYANOCOBALAMIN 1,000 MCG TABLET PO SCH (09:00)
[2022-11-26] MEDS ORDERED: VITAMIN D3 25 MCG (1,000 UNITS) TABLET PO SCH (09:00)
--- NOTE | 2022-11-26 09:19 | Diagnostic Imaging Report ---
Indication: Pacemaker placement, follow-up Frontal chest obtained at 0418 a.m. compared with 11/25/2022 Heart and mediastinal silhouette are normal in appearance. Pacemaker is unchanged. There is no focal infiltrate or pneumothorax or pleural fluid. There are chronic appearing increased interstitial markings. IMPRESSION: Chronic changes with no new infiltrate or pneumothorax or pleural fluid. Pacemaker appears in appropriate position. Dictated by: Dictated on workstation # [id number]
[2022-11-26] MEDS: DOCUSATE SODIUM 100 MG CAPSULE PO SCH (10:01)
[2022-11-26] MEDS: SENNOSIDES 8.6 MG (SENOKOT) TAB PO SCH (10:01)
--- NOTE | 2022-11-26 10:54 | Discharge Summary ---
Diagnosis/Chief Complaint Date of Admission Nov 24, 2022 at 18:41 Date of Discharge Discharge Date: Nov 26, 2022 Discharge Diagnosis Assessment: Complete heart block Bradycardia HTN HLP Current smoker Retinal detachment left eye, will get surgery at History of cataract surgery both eyes Discharge Summary Discharge Physical Examination Allergies: Uncoded Allergies: PENICILLIN (Allergy, Intermediate, RASH, 11/01/09) Vitals & I&Os Vital Signs Date Time Temp Pulse Resp B/P (MAP) Pulse Ox O2 Delivery O2 Flow Rate FiO2 11/26/22 11:34 60 22 155/79 97 Room Air 11/24/22 19:49 36.4 21 General Appearance: Alert, Oriented X3, Cooperative Respiratory: Clear to Auscultation Cardiovascular: Regular Rate Hospital Course Was the Problem List Reviewed?: Yes Hospital course: 72-year-old male presented to the ED on 11/24/22 for abnormal HR. Had external monitor placed and was noted to be in third-degree heart block. His HR was in the 30's & 40's and BP was 181/65. CXR showed no acute-appearing abnormality and no pneumothorax. Has a history of high cholesterol, cataract surgery, and left retinal detachment for which he is getting surgery for. Patient was admitted to ICU on 11/24/22 for complete heart block and bradycardia. During his stay, he was given IV fluids, enoxaparin, and taken off beta-blockers. A dual chamber pacemaker was placed on 11/25/22 without any complications, HR was in the 60's. Patient made a good recovery and his SBP ranged from 130's-150's during his stay. On 11/26/22, he was started on metoprolol and was discharged. Labs (last 24 hrs) Laboratory Tests 11/24/22 16:30: White Blood Count 7.8, Red Blood Count 5.17, Hemoglobin 14.9, Hematocrit 45, Mean Corpuscular Volume 87, Mean Corpuscular Hemoglobin 29, Mean Corpuscular Hemoglobin Concent 33, Red Cell Distribution Width 12.9, Platelet Count 177, Mean Platelet Volume 9.9, Immature Granulocyte % (Auto) 0, Neutrophils (%) (Auto) 56, Lymphocytes (%) (Auto) 30, Monocytes (%) (Auto) 9, Eosinophils (%) (Auto) 4, Basophils (%) (Auto) 1, Neutrophils # (Auto) 4.4, Lymphocytes # (Auto) 2.4, Monocytes # (Auto) 0.7, Eosinophils # (Auto) 0.3, Basophils # (Auto) 0.1, Immature Granulocyte # (Auto) 0.0, Prothrombin Time 13.6, INR Comment 1.0, Activated Partial Thromboplast Time 31, Sodium Level 143, Potassium Level 3.8, Chloride Level 111H, Carbon Dioxide Level 24, Anion Gap 8, Blood Urea Nitrogen 12, Creatinine 0.76, Estimat Glomerular Filtration Rate 95, BUN/Creatinine Ratio 16, Glucose Level 134H, Calcium Level 8.8, Corrected Calcium 8.6, Magnesium Level 2.1, Total Bilirubin 0.7, Aspartate Amino Transf (AST/SGOT) 15, Alanine Aminotransferase (ALT/SGPT) 9, Alkaline Phosphatase 82, Myoglobin 26.7, Troponin I < 0.028, Total Protein 6.8, Albumin 4.2 11/24/22 21:56: Glucometer 93 11/25/22 03:41: White Blood Count 7.2, Red Blood Count 4.67, Hemoglobin 13.4, Hematocrit 40, Mean Corpuscular Volume 86, Mean Corpuscular Hemoglobin 29, Mean Corpuscular Hemoglobin Concent 33, Red Cell Distribution Width 12.9, Platelet Count 163, Mean Platelet Volume 10.4, Immature Granulocyte % (Auto) 0, Neutrophils (%) (Auto) 52, Lymphocytes (%) (Auto) 33, Monocytes (%) (Auto) 9, Eosinophils (%) (Auto) 5, Basophils (%) (Auto) 1, Neutrophils # (Auto) 3.7, Lymphocytes # (Auto) 2.4, Monocytes # (Auto) 0.6, Eosinophils # (Auto) 0.4H, Basophils # (Auto) 0.0, Immature Granulocyte # (Auto) 0.0, Sodium Level 142, Potassium Level 3.9, C hloride Level 113H, Carbon Dioxide Level 21, Anion Gap 8, Blood Urea Nitrogen 12, Creatinine 0.64, Estimat Glomerular Filtration Rate 101, BUN/Creatinine Ratio 19, Glucose Level 90, Calcium Level 8.2L, Corrected Calcium 8.5, Magnesium Level 1.9, Total Bilirubin 0.5, Aspartate Amino Transf (AST/SGOT) 14, Alanine Aminotransferase (ALT/SGPT) 7, Alkaline Phosphatase 75, Total Protein 6.1L, Albumin 3.6, Phosphorus Level 2.9, Triglycerides Level 69, Cholesterol Level 103, LDL Cholesterol Direct 63, VLDL Cholesterol 14, HDL Cholesterol 34L 11/25/22 20:32: Glucometer 109 11/26/22 03:49: White Blood Count 8.4, Red Blood Count 5.05, Hemoglobin 14.3, Hematocrit 43, Mean Corpuscular Volume 85, Mean Corpuscular Hemoglobin 28, Mean Corpuscular Hemoglobin Concent 34, Red Cell Distribution Width 12.7, Platelet Count 194, Mean Platelet Volume 10.0, Immature Granulocyte % (Auto) 0, Neutrophils (%) (Auto) 61, Lymphocytes (%) (Auto) 25, Monocytes (%) (Auto) 9, Eosinophils (%) (Auto) 4, Basophils (%) (Auto) 1, Neutrophils # (Auto) 5.1, Lymphocytes # (Auto) 2.1, Monocytes # (Auto) 0.7, Eosinophils # (Auto) 0.4H, Basophils # (Auto) 0.1, Immature Granulocyte # (Auto) 0.0, Sodium Level 140, Potassium Level 3.8, Chloride Level 109H, Carbon Dioxide Level 23, Anion Gap 8, Blood Urea Nitrogen 8, Creatinine 0.65, Estimat Glomerular Filtration Rate 100, BUN/Creatinine Ratio 12, Glucose Level 89, Calcium Level 8.4L, Corrected Calcium 8.5, Phosphorus Level 2.6, Magnesium Level 1.9, Total Bilirubin 0.8, Aspartate Amino Transf (AST/SGOT) 15, Alanine Aminotransferase (ALT/SGPT) 7, Alkaline Phosphatase 80, Total Protein 6.5, Albumin 3.9 Microbiology 11/24/22 MRSA Screen - Final, Complete MRSA not isolated Pending Labs Microbiology Date/Time Source Procedure Growth Status 11/24/22 19:00 Nasal MRSA Screen - Final MRSA not isolated Complete Laboratory Tests 11/24/22 16:30: White Blood Count 7.8, Red Blood Count 5.17, Hemoglobin 14.9, Hematocrit 45, Mean Corpuscular Volume 87, Mean Corpuscular Hemoglobin 29, Mean Corpuscular Hemoglobin Concent 33, Red Cell Distribution Width 12.9, Platelet Count 177, Mean Platelet Volume 9.9, Immature Granulocyte % (Auto) 0, Neutrophils (%) ( Auto) 56, Lymphocytes (%) (Auto) 30, Monocytes (%) (Auto) 9, Eosinophils (%) (Auto) 4, Basophils (%) (Auto) 1, Neutrophils # (Auto) 4.4, Lymphocytes # (Auto) 2.4, Monocytes # (Auto) 0.7, Eosinophils # (Auto) 0.3, Basophils # (Auto) 0.1, Immature Granulocyte # (Auto) 0.0, Prothrombin Time 13.6, INR Comment 1.0, Activated Partial Thromboplast Time 31, Sodium Level 143, Potassium Level 3.8, Chloride Level 111, Carbon Dioxide Level 24, Anion Gap 8, Blood Urea Nitrogen 12, Creatinine 0.76, Estimat Glomerular Filtration Rate 95, BUN/Creatinine Ratio 16, Glucose Level 134, Calcium Level 8.8, Corrected Calcium 8.6, Magnesium Level 2.1, Total Bilirubin 0.7, Aspartate Amino Transf (AST/SGOT) 15, Alanine Aminotransferase (ALT/SGPT) 9, Alkaline Phosphatase 82, Myoglobin 26.7, Troponin I < 0.028, Total Protein 6.8, Albumin 4.2 11/24/22 21:56: Glucometer 93 11/25/22 03:41: White Blood Count 7.2, Red Blood Count 4.67, Hemoglobin 13.4, Hematocrit 40, Mean Corpuscular Volume 86, Mean Corpuscular Hemoglobin 29, Mean Corpuscular Hemoglobin Concent 33, Red Cell Distribution Width 12.9, Platelet Count 163, Mean Platelet Volume 10.4, Immature Granulocyte % (Auto) 0, Neutrophils (%) (Auto) 52, Lymphocytes (%) (Auto) 33, Monocytes (%) (Auto) 9, Eosinophils (%) (Auto) 5, Basophils (%) (Auto) 1, Neutrophils # (Auto) 3.7, Lymphocytes # (Auto) 2.4, Monocytes # (Auto) 0.6, Eosinophils # (Auto) 0.4, Basophils # (Auto) 0.0, Immature Granulocyte # (Auto) 0.0, Sodium Level 142, Potassium Level 3.9, Chlo ride Level 113, Carbon Dioxide Level 21, Anion Gap 8, Blood Urea Nitrogen 12, Creatinine 0.64, Estimat Glomerular Filtration Rate 101, BUN/Creatinine Ratio 19, Glucose Level 90, Calcium Level 8.2, Corrected Calcium 8.5, Magnesium Level 1.9, Total Bilirubin 0.5, Aspartate Amino Transf (AST/SGOT) 14, Alanine Aminotransferase (ALT/SGPT) 7, Alkaline Phosphatase 75, Total Protein 6.1, A lbumin 3.6, Phosphorus Level 2.9, Triglycerides Level 69, Cholesterol Level 103, LDL Cholesterol Direct 63, VLDL Cholesterol 14, HDL Cholesterol 34 11/25/22 20:32: Glucometer 109 11/26/22 03:49: White Blood Count 8.4, Red Blood Count 5.05, Hemoglobin 14.3, Hematocrit 43, Mean Corpuscular Volume 85, Mean Corpuscular Hemoglobin 28, Mean Corpuscular Hemoglobin Concent 34, Red Cell Distribution Width 12.7, Platelet Count 194, Mean Platelet Volume 10.0, Immature Granulocyte % (Auto) 0, Neutrophils (%) (Auto) 61, Lymphocytes (%) (Auto) 25, Monocytes (%) (Auto) 9, Eosinophils (%) (Auto) 4, Basophils (%) (Auto) 1, Neutrophils # (Auto) 5.1, Lymphocytes # (Auto) 2.1, Monocytes # (Auto) 0.7, Eosinophils # (Auto) 0.4, Basophils # (Auto) 0.1, Immature Granulocyte # (Auto) 0.0, Sodium Level 140, Potassium Level 3.8, Chloride Level 109, Carbon Dioxide Level 23, Anion Gap 8, Blood Urea Nitrogen 8, Creatinine 0.65, Estimat Glomerular Filtration Rate 100, BUN/Creatinine Ratio 12, Glucose Level 89, Calcium Level 8.4, Corrected Calcium 8.5, Phosphorus Level 2.6, Magnesium Level 1.9, Total Bilirubin 0.8, Aspartate Amino Transf (AST/SGOT) 15, Alanine Aminotransferase (ALT/SGPT) 7, Alkaline Phosphatase 80, Total Protein 6.5, Albumin 3.9 Discharge Home Medications: Active Scripts Active Toprol Xl (Metoprolol Succinate) 25 Mg Tab.er.24h 25 Mg PO DAILY Reported Vitamin C (Ascorbate Calcium) 500 Mg Tablet 500 Mg PO DAILY Zinc (Zinc Amino Acid Chelate) 50 Mg Tablet 50 Mg PO DAILY Magnesium (Magnesium Oxide) 400 Mg Magnesium Tablet 400 Mg PO DAILY Vitamin B-12 (Cyanocobalamin (Vitamin B-12)) 1,000 Mcg Tablet 1,000 Mcg PO DAILY Vitamin D3 (Cholecalciferol (Vitamin D3)) 50 Mcg (2000 Unit) Capsule 50 Mcg PO DAILY Lovastatin 40 Mg Tablet 40 Mg PO HS Instructions to patient/family Please see electronic discharge instructions given to patient. Clinical Quality Measures AMI/AHF: ASA po Prior to arrival: No IBETH ALEJANDRA DO Nov 26, 2022 10:54
[2022-11-26 11:34] VITALS: BP 155/79
--- NOTE | 2022-11-26 12:22 | Progress Note ---
EDWIN HAGEN 11/26/22 1222: Progress Note Hospital course: 72-year-old male presented to the ED on 11/24/22 for abnormal HR. Had external monitor placed and was noted to be in third-degree heart block. His HR was in the 30's & 40's and BP was 181/65. CXR showed no acute-appearing abnormality and no pneumothorax. Has a history of high cholesterol, cataract surgery, and left retinal detachment for which he is getting surgery for. Patient was admitted to ICU on 11/24/22 for complete heart block and bradycardia. During his stay, he was given IV fluids, enoxaparin, and taken off beta-blockers. A dual chamber pacemaker was placed on 11/25/22 without any complications, HR was in the 60's. Patient made a good recovery and his SBP ran ged from 130's-150's during his stay. On 11/26/22, he was started on metoprolol and was discharged. BARBARA ALEJANDRA DO 11/26/220: Supervisory-Addendum Brief Verification & Attestation Participated in pt care: history, MDM, physical Personally performed: exam, history, MDM, supervision of care Care discussed with: Medical Student Procedures: n/a Results interpretation: Verified all documentation Verification and Attestation of Medical Student E/M Service A medical student performed and documented this service in my presence. I reviewed and verified all information documented by the medical student and made modifications to such information, when appropriate. I personally performed the physical exam and medical decision making. Barbara Alejandra Nov 26, 2022,21:20 EDWIN HAGEN Nov 26, 2022 12:22 BARBARA ALEJANDRA DO Nov 26, 2022 21:20
== END 2022-11-26 11:55 | disposition home or self-care (01) | DRG 244 ==
LOC: EDUNIT# 16:23 → ER 16:25 → ICU 18:41
PROVIDERS: ADMIT Internal Medicine; ATTEND Internal Medicine
PROC: 0JH606Z Insertion of Pacemaker, Dual Chamber into Chest Subcutaneous Tissue and Fascia, Open Approach (ICD-10-PCS; principal; 2022-11-25)
PROC: 02H60JZ Insertion of Pacemaker Lead into Right Atrium, Open Approach (ICD-10-PCS; 2022-11-25)
PROC: 02HK3JZ Insertion of Pacemaker Lead into Right Ventricle, Percutaneous Approach (ICD-10-PCS; 2022-11-25)
DX: I44.2 Atrioventricular block, complete (principal); F17.210 Nicotine dependence, cigarettes, uncomplicated; E78.00 Pure hypercholesterolemia, unspecified; I10 Essential (primary) hypertension; M19.90 Unspecified osteoarthritis, unspecified site; I65.23 Occlusion and stenosis of bilateral carotid arteries; Z82.49 Family history of ischemic heart disease and other diseases of the circulatory system
CPT/HCPCS: 33208; 36415; 71045; 80053; 80061; 82947; 83735; 83874; 84100; 84484; 85025; 85610; 85730; 87081; 93005

== ENCOUNTER → 2022-12-14 | Outpatient (CLI) | payer MEDICARE ==
[~2022-12-14] MED LIST changes: +ASCO-262 PO; +CHOL20003 PO; +CYAN-41 PO; +MAGN400T39 PO; +METO-351 PO; +ZINC50TA51 PO
== END ==
LOC: CARD 08:21
PROVIDERS: ATTEND Internal Medicine Cardiovascular Disease
DX: I44.1 Atrioventricular block, second degree (principal); E78.2 Mixed hyperlipidemia; I51.7 Cardiomegaly; Z95.0 Presence of cardiac pacemaker
CPT/HCPCS: 93306